=== PATIENT | male | born 1950 | race American Indian/Alaskan Native ===

== ENCOUNTER 2019-01-11 06:13 | Day surgery (SDC) | payer MEDICARE ==
[2019-01-11] MEDS ORDERED: ASPIRIN EC 325 MG TAB PO ONE (06:43)
[2019-01-11] MEDS ORDERED: SODIUM CHLORIDE 0.9% 500 ML 500 ML IV SCH (07:00)
[2019-01-11 07:05] LABS: Basophils # (Auto) 0.1 K/mm3 (0.0-0.1); Basophils % (Auto) 1.1 % (0.0-1.8); Eosinophils # (Auto) 0.1 K/mm3 (0.0-0.4); Hematocrit 41.2 % (35.5-45.6); Hemoglobin 14.1 gm/dl (11.8-15.2); Lymphocytes # (Auto) 1.4 K/mm3 (1.2-5.4); Lymphocytes % (Auto) 16.6 % (13.4-35.0); Mean Corpuscular HGB Conc 34 % (32-34); Mean Corpuscular Volume 94 fl (84-94); Monocytes # (Auto) 0.6 K/mm3 (0.0-0.8); Monocytes % (Auto) 7.3 % (0.0-7.3); Platelet Count 206 K/mm3 (140-440); Red Blood Count 4.36 M/mm3 (3.65-5.03); Red Cell Distribution Width 14.2 % (13.2-15.2)
[2019-01-11 07:16] LABS: INR 1.27 (0.87-1.13)
[2019-01-11 07:18] LABS: BUN/Creatinine Ratio 18; Blood Urea Nitrogen 20 mg/dL (9-20); Calcium 9.3 mg/dL (8.4-10.2); Hemolysis Index 88
[2019-01-11] MEDS ORDERED: HEPARIN 10,000 UNITS/10 ML VIAL ONE (08:20)
[2019-01-11] MEDS ORDERED: LIDOCAINE (2%) 20 MG/1 ML VIAL 20 ML MDV INFILTRATI ONE (08:20)
[2019-01-11] MEDS ORDERED: VERAPAMIL 5 MG/2 ML INJ ONE (08:20)
[2019-01-11] MEDS ORDERED: HEPARIN/NS 5000 UNIT/500ML 1,000 ML IR ONE (08:20)
[2019-01-11] MEDS ORDERED: NITROGLYCERIN SYRINGE 3 ML ONE (08:20)
[2019-01-11] MEDS ORDERED: fentaNYL 100 MCG/2 ML INJ ONE (08:21)
[2019-01-11] MEDS ORDERED: MIDAZOLAM 2 MG/2 ML INJ ONE (08:21)
--- NOTE | 2019-01-11 09:58 | Cardiac Catherization Report ---
LEFT HEART CATHETERIZATION Starting sedation at 8:44 and finished at 8:59, which is 15 minutes of moderate sedation. CLINICAL INFORMATION: This is a 68-year-old gentleman with history of stroke, has atrial fibrillation, hypertension, hyperlipidemia, who had a progressive weakening of the LV function with abnormal PET, here for left heart catheterization for cardiomyopathy. Procedure was done via the right radial artery. PROCEDURE FINDINGS: Left system, JL3.5 catheter. Left main is a large caliber vessel, patent, bifurcates into a large caliber LAD that is patent, small diagonal 1, 2 and 3 are less than 1.5 mm, patent. Circumflex is a large caliber vessel that is patent. AV groove, goes into a medium caliber OM2 that is patent. OM1 is a small caliber vessel, has an ostial proximal 70% lesion. RCA is a large dominant vessel, proximal has a 20%, mid smooth 50-60%, distal focal 30%. PDA medium caliber vessel, patent. LV gram done in VIJAYA and HERNANDEZ view shows [id number] LV dysfunction, approximately 40%. LVEDP at 32 mmHg, LV is 160. Aortic is 156/85. No gradient across the aortic valve on pullback. A 5-[place] catheters all taken over guidewire, 6-[place] radial sheath was discontinued. Radial band applied. No hematoma, no bleeding. SUMMARY: Left main patent, LAD patent, circumflex and AV groove patent. OM2 patent. OM1 is small caliber vessel, has an ostial proximal 70%. We will treat medically. RCA large, dominant proximal 20%, mid smooth 50-60%, distal focal 30%, PDA patent with [id number] LV dysfunction, EF 40% with elevated left end-diastolic pressure. Discussed this in detail with the patient and the patient's family. RECOMMENDATION: Continue medical management. JOB# [id number] WILY/GIANA
--- NOTE | 2019-01-11 10:06 | Short Stay Summary ---
Short Stay Documentation Date of service: 01/11/19 - History H&P: obtained from office - Allergies and Medications Current Medications: Allergies lisinopril Allergy (Verified 01/11/19 07:48) COUGH Home Medications Medication Instructions Recorded Confirmed Last Taken Type Aspirin [Aspirin BABY CHEW TAB] 81 mg PO QDAY 01/11/19 01/11/19 01/10/19 History Losartan [Cozaar] 50 mg PO BID 01/11/19 01/11/19 01/11/19 History Metoprolol [Lopressor] 12.5 mg PO BID 01/11/19 01/11/19 01/11/19 History Rivaroxaban [Xarelto] 20 mg PO DAILY 01/11/19 01/11/19 01/09/19 History Sertraline [Zoloft] 50 mg PO DAILY 01/11/19 01/11/19 01/10/19 History Simvastatin 20 mg PO DAILY 01/11/19 01/11/19 01/10/19 History hydrALAZINE [Apresoline] 25 mg PO TID 01/11/19 01/11/19 01/11/19 History metFORMIN [Glucophage] 500 mg PO BID 01/11/19 01/11/19 01/10/19 History Active Medications Sodium Chloride (Nacl 0.9% 500 Ml) 500 mls @ 50 mls/hr IV DIRECT NICK Stop: 01/11/19 16:59 Last Admin: 01/11/19 07:49 Dose: 50 mls/hr Documented by: - Brief post op/procedure progress note Date of procedure: 01/11/19 Pre-op diagnosis: cardiomyopathy Post-op diagnosis: same Procedure: see report Anesthesia: local Estimated blood loss: none Pathology: none - Disposition Condition at discharge: Good Disposition: [id number] TO HOME OR SELFCARE - Discharge Diagnoses (1) CAD (coronary artery disease) Status: Chronic Qualifiers: Coronary Disease-Associated Artery/Lesion type: [place] artery [place] vs. transplanted heart: [place] heart Associated angina: without angina Qualified Code(s): I25.10 - Atherosclerotic heart disease of [place] coronary artery without angina pectoris (2) Cardiomyopathy Status: Chronic Qualifiers: Cardiomyopathy type: unspecified Qualified Code(s): I42.9 - Cardiomyopathy, unspecified (3) Hypertension Status: Chronic Qualifiers: Hypertension type: essential hypertension Qualified Code(s): I10 - Essential (primary) hypertension (4) CVA (cerebral vascular accident) Status: Chronic Qualifiers: CVA mechanism: embolism Precerebral and cerebral artery: anterior cerebral artery Laterality of affected vessel: unspecified Qualified Code(s): I63.429 - Cerebral infarction due to embolism of unspecified anterior cerebral artery (5) Hyperlipemia, mixed Status: Chronic (6) Atrial fibrillation Status: Chronic Qualifiers: Atrial fibrillation type: longstanding persistent Qualified Code(s): I48.11 - Longstanding persistent atrial fibrillation (7) Diabetes mellitus Status: Chronic Qualifiers: Diabetes mellitus type: type 2 Diabetes mellitus skilled nursing insulin use: with skilled nursing use Diabetes mellitus complication status: without complication Qualified Code(s): E11.9 - Type 2 diabetes mellitus without complications; Z79.4 - tread booker (current) use of insulin Short Stay Discharge Plan Activity: advance as tolerated Diet: low fat, low cholesterol, low salt Wound: keep clean and dry Special Instructions: hold Metformin (for 48 hours ) Follow up with: ALTAF BANDA MD [Primary Care Provider] - 7 Days
[2019-01-11 12:09] VITALS: BP 127/53
== END 2019-01-11 13:00 | disposition home or self-care (01) ==
LOC: CATHLABREC 06:13
PROVIDERS: ATTEND Internal Medicine
DX: I42.9 Cardiomyopathy, unspecified (principal); I48.91 Unspecified atrial fibrillation; E78.2 Mixed hyperlipidemia; E11.9 Type 2 diabetes mellitus without complications; I10 Essential (primary) hypertension; I25.10 Atherosclerotic heart disease of native coronary artery without angina pectoris; F32.9 Major depressive disorder, single episode, unspecified; Z79.899 Other long term (current) drug therapy; Z79.84 Long term (current) use of oral hypoglycemic drugs; Z79.82 Long term (current) use of aspirin; Z87.891 Personal history of nicotine dependence; Z85.068 Personal history of other malignant neoplasm of small intestine; Z98.890 Other specified postprocedural states; Z86.73 Personal history of transient ischemic attack (TIA), and cerebral infarction without residual deficits; Z88.8 Allergy status to other drugs, medicaments and biological substances
CPT/HCPCS: 36415; 80048; 85025; 85610; 85730; 93005; 93010; 93458; 99156; C1894; J1644; J2250; J3010; J7040; Q9967